=== PATIENT | male | born 1955 | race Caucasian/White ===

== ENCOUNTER 2019-11-19 16:43 | Inpatient (IN) | payer BC, MEDICAID ==
[~2019-11-19] VITALS: Ht 182.9 cm; Wt 90.7 kg
[~2019-11-19 16:43] MED LIST: ALBU8HFA4 INH; AMIN30LI2 PO; CRAN300T PO; DOCU-141 PO; FLUT9.9S NS; FOLI1TAB16 PO; HYDR-4077 PO; LACT10SO7 PO; LEVO200T PO; LORA-259 PO; METO50TA16 PO; MIRT15TA PO; OMEP40CA13 PO; OXYC15TA2 PO; SIME80TA15 PO; SPIR25TA PO; TAMS-3 PO; THIA100T13 PO; VIT1TABL46 PO; WHEA1POW6 PO
[2019-11-19] MEDS ORDERED: ONDANSETRON 4 MG/2 ML VIAL IV ONE (17:00)
[2019-11-19] MEDS ORDERED: IV NORMAL SALINE 500 ML BAG IV ONE (17:00)
[2019-11-19] MEDS ORDERED: HYDROMORPHONE 1 MG/1 ML DISP.SYRIN IV ONE ×2 (17:00→18:45)
[2019-11-19] MEDS ORDERED: ONDANSETRON 4 MG/2 ML VIAL ONE (17:07)
[2019-11-19] MEDS ORDERED: HYDROMORPHONE 1 MG/1 ML DISP.SYRIN ONE ×2 (17:07→18:48)
[2019-11-19] MEDS ORDERED: SPIR100T5 PO (17:15)
[2019-11-19] MEDS ORDERED: ALBU8HFA4 IH (17:15)
[2019-11-19] MEDS ORDERED: OXYC5TAB3 PO (17:15)
[2019-11-19] MEDS ORDERED: TOPROL XL (17:15)
[2019-11-19] MEDS ORDERED: NIFEDIPINE (17:15)
[2019-11-19] MEDS ORDERED: FURO20TA90 (17:15)
[2019-11-19] MEDS ORDERED: LORA-258 PO (17:15)
[2019-11-19] MEDS ORDERED: LIBRIUM (17:15)
[2019-11-19] MEDS ORDERED: METO-357 PO (17:15)
[2019-11-19] MEDS ORDERED: FOLIC ACID (17:15)
[2019-11-19] MEDS ORDERED: DILAUDID (17:15)
[2019-11-19] MEDS ORDERED: LEVO200T9 PO (17:15)
--- NOTE | 2019-11-19 17:15 | NUR ---
PT IS IN ROOM #1B. DR MORENO EVALUATED THE PT.
[2019-11-19 17:46] LABS: BASOPHILS # (AUTO) 0.2 K/uL (0.0-8.0); BASOPHILS % (AUTO) 1.6 % (0.0-2.0); CREATININE 1.5 mg/dL (0.6-1.3); EOSINOPHILS # (AUTO) 0.1 K/uL (0.0-0.7); EOSINOPHILS % (AUTO) 0.8 % (0.0-7.0); HEMATOCRIT 28.9 % (36.7-47.1); HEMOGLOBIN 8.8 g/dL (12.5-16.3); LYMPHOCYTES % (AUTO) 18.7 % (20.5-51.5); MEAN CORPUSCULAR HEMOGLOBIN 19.4 uug (23.8-33.4); MEAN CORPUSCULAR HGB CONC 30 g/dL (32.5-36.3); MEAN CORPUSCULAR VOLUME 63.7 fL (73.0-96.2); MONOCYTES # (AUTO) 1.3 K/uL (2.0-10.0); NEUTROPHILS # (AUTO) 7.1 K/uL (1.8-8.9); NEUTROPHILS % (AUTO) 66.9 % (38.5-71.5); PLATELET COUNT (AUTO) 78 K/uL (152-348); POTASSIUM 3.9 mmol/L (3.5-5.1); RED BLOOD CELL COUNT(AUTO) 4.54 MIL/uL (4.06-5.63); WHITE BLOOD COUNT (AUTO) 10.6 K/uL (3.6-10.2)
[2019-11-19 17:51] LABS: BILIRUBIN,DIRECT 0.3 mg/dL (0.0-0.2); BILIRUBIN,TOTAL 0.6 mg/dL (0.2-1.0)
--- NOTE | 2019-11-19 19:00 | NUR ---
urine collected at this time and sent to lab, no signs of distress noted at this time, vitals WNL
--- NOTE | 2019-11-19 19:00 | NUR ---
REPORT GIVEN TO NEWSPAPER PHOTOGRAPHER ASHUTOSH ELIZABETH.
[2019-11-19] MEDS ORDERED: Z GUARD REMEDY PASTE 57 GM TUBE TOP PRN (19:15)
[2019-11-19] MEDS ORDERED: MAGNESIUM HYDROXIDE 30 ML LIQUID UDC PO PRN (19:15)
[2019-11-19] MEDS ORDERED: ACETAMINOPHEN 325 MG TABLET PO PRN (19:15)
[2019-11-19] MEDS: LORAZEPAM 2 MG/1 ML VIAL IV PRN ×2 (19:58→23:02)
[2019-11-19 20:15] LABS: BAND % (MANUAL) 1 % (0-10); EOSINOPHILS % (MANUAL) 3 % (0-8); LYMPHOCYTES % (MANUAL) 16 % (20-40); MONOCYTES % (MANUAL) 10 % (2-10); NEUTROPHILS % (MANUAL) 70 % (42-75)
--- NOTE | 2019-11-19 20:29 | NUR ---
Pt. admitted to Tele unit , under care of Dr. Terry Belongs List completed, no signs of distress noted
[2019-11-19 20:44] VITALS: BP 154/68
[2019-11-19] MEDS ORDERED: ALBUTEROL SULFATE 2.5 MG/3 ML NEBU NEB PRN (21:00)
[2019-11-19] MEDS: THIAMINE HCL 100 MG TABLET PO SCH (21:06)
[2019-11-19] MEDS: FOLIC ACID 1 MG TABLET PO SCH (21:07)
[2019-11-19] MEDS: IV D5 1/2 NS 1000 ML 1,000 ML IV PRN (21:07)
[2019-11-19] MEDS: OXYCODONE HCL 5 MG TABLET PO PRN (22:59)
[2019-11-20 01:01] VITALS: BP 122/62
[2019-11-20] MEDS: ONDANSETRON 4 MG/2 ML VIAL IV PRN ×2 (03:40→11:28)
[2019-11-20] MEDS: LORAZEPAM 2 MG/1 ML VIAL IV PRN (03:40)
[2019-11-20] MEDS: IV D5 1/2 NS 1000 ML 1,000 ML IV PRN ×2 (04:00→15:15)
[2019-11-20 05:31] VITALS: BP 121/65
--- NOTE | 2019-11-20 06:36 | NUR ---
Admitted to room 302; safety maintained; CIWA done and gave ativan IVP; incontinence care done; needs attended; c/o pain x1 Oxyir given; remains on 1 liter O2 nasal cannula; continue to monitor; continue plan of care.
[2019-11-20] MEDS: LEVOTHYROXINE SODIUM 200 MCG TABLET PO SCH (06:46)
[2019-11-20] MEDS ORDERED: PANTOPRAZOLE SODIUM 40 MG TABLET.DR PO SCH (07:00)
[2019-11-20 07:30] LABS: BASOPHILS % (AUTO) 0.8 % (0.0-2.0); EOSINOPHILS # (AUTO) 0.1 K/uL (0.0-0.7); EOSINOPHILS % (AUTO) 1.3 % (0.0-7.0); HEMOGLOBIN 7.6 g/dL (12.5-16.3); MEAN CORPUSCULAR HEMOGLOBIN 20.1 uug (23.8-33.4)
--- NOTE | 2019-11-20 07:30 | NUR ---
pt received in bed sleeping .o2 on and vs are stable pt is axox3 call light with in reach
[2019-11-20 07:32] LABS: HEMATOCRIT 24.6 % (36.7-47.1); MEAN CORPUSCULAR HGB CONC 31 g/dL (32.5-36.3); MEAN CORPUSCULAR VOLUME 64.7 fL (73.0-96.2); MONOCYTES # (AUTO) 0.5 K/uL (2.0-10.0); MONOCYTES % (AUTO) 8.7 % (0.0-11.0); NEUTROPHILS # (AUTO) 3.8 K/uL (1.8-8.9); NEUTROPHILS % (AUTO) 71.2 % (38.5-71.5); WHITE BLOOD COUNT (AUTO) 5.4 K/uL (3.6-10.2)
[2019-11-20 07:36] LABS: BILIRUBIN,TOTAL 0.5 mg/dL (0.2-1.0); CREATININE 1.4 mg/dL (0.6-1.3); MAGNESIUM 1.2 mg/dL (1.8-2.4); PHOSPHOROUS 3.8 mg/dL (2.5-4.9); TOTAL PROTEIN, SERUM 6.3 g/dL (6.4-8.2)
[2019-11-20 07:43] LABS: THYROID STIMULATING HORMONE 10.968 mIU/mL (0.358-3.740)
[2019-11-20 07:56] LABS: PLATELET COUNT (AUTO) 45 K/uL (152-348)
[2019-11-20] MEDS: FOLIC ACID 1 MG TABLET PO SCH (08:04)
[2019-11-20] MEDS: THIAMINE HCL 100 MG TABLET PO SCH (08:04)
[2019-11-20] MEDS ORDERED: METOPROLOL SUCCINATE XL 50 MG TAB.SR.24H PO SCH (09:00)
[2019-11-20] MEDS ORDERED: SPIRONOLACTONE 50 MG TABLET PO SCH (09:00)
[2019-11-20] MEDS ORDERED: SPIRONOLACTONE 100 MG TABLET PO SCH (09:00)
[2019-11-20 10:42] LABS: BAND % (MANUAL) 1 % (0-10); EOSINOPHILS % (MANUAL) 1 % (0-8); LYMPHOCYTES % (MANUAL) 10 % (20-40); MONOCYTES % (MANUAL) 11 % (2-10); MYELOCYTES % 1 % (0-0); NEUTROPHILS % (MANUAL) 76 % (42-75)
[2019-11-20] MEDS: MAGNESIUM SULFATE/D5W 100 ML IV SCH ×4 (10:46→13:29)
[2019-11-20 12:00] VITALS: BP 105/60
[2019-11-20] MEDS ORDERED: CEFTRIAXONE 1 G VIAL IV SCH (13:15)
[2019-11-20] MEDS ORDERED: OCTREOTIDE ACETATE DRIP 1,250 MCG in IV NORMAL SALINE 247.5 ML IV PRN (13:30)
[2019-11-20] MEDS ORDERED: OCTREOTIDE ACETATE DRIP 500 MCG in IV NORMAL SALINE 99 ML IV PRN (13:30)
[2019-11-20] MEDS ORDERED: MAGNESIUM SULFATE/D5W 100 ML IV SCH (13:30)
[2019-11-20] MEDS: CEFTRIAXONE 1 G in IV DEXTROSE 5% 50 ML IV SCH (15:00)
--- NOTE | 2019-11-20 15:00 | NUR ---
took over care from am nurse, pt awake alert and oriented, looks pale, no active bleeding noted, explained plan of care- verbalized understanding, safety measures maintained, call light within reach
--- NOTE | 2019-11-20 15:00 | NUR ---
transfer the pt to [facility]
--- NOTE | 2019-11-20 15:05 | NUR ---
sandostatin drip started at 50mcg at 10ml/hr started, VS wnl, no bleeding noted, will continue to monitor closely, changed status to BRENDEN, tleSR 70's, denies of pain
[2019-11-20 15:28] LABS: *BILIRUBIN,URIN NEGATIVE (NEGATIVE); *BLOOD, URINE 1+ (NEGATIVE); *CLARITY,URINE CLEAR (CLEAR); *COLOR,URINE YELLOW (YELLOW); *KETONES,URINE NEGATIVE (NEGATIVE); *UROBILINOGEN,URINE 0.2 E.U./dl (NORMAL); LEUKOCYTE ESTERASE ,URINE NEGATIVE (NEGATIVE); NITRITE, URINE NEGATIVE (NEGATIVE); PH,URINE 5.5 (5.0-8.0); UGLUCOSE NEGATIVE (NEGATIVE)
[2019-11-20 15:31] VITALS: BP 135/57
[2019-11-20 15:53] LABS: *CREATININE,URINE 43.6 mg/dL (30-125); *URINE TOTAL PROTEIN RANDOM 76.5 mg/dL (<150/24HR)
[2019-11-20] MEDS: PANTOPRAZOLE SODIUM 40 MG VIAL IV SCH (16:08)
[2019-11-20 16:11] LABS: HEMATOCRIT 25.6 % (36.7-47.1); HEMOGLOBIN 7.6 g/dL (12.5-16.3)
[2019-11-20 17:36] VITALS: BP 105/47
--- NOTE | 2019-11-20 18:44 | NUR ---
resting in bed, no bleeding noted, vs wnl, all needs attended and met, call light within reach
[2019-11-20] MEDS ORDERED: GOLYTELY 4000 ML BOTTLE PO ONE (20:00)
[2019-11-20 20:12] VITALS: BP 108/53
[2019-11-20 20:15] LABS: HEMATOCRIT 24.3 % (36.7-47.1)
[2019-11-20 20:19] LABS: HEMOGLOBIN 7.4 g/dL (12.5-16.3)
[2019-11-20] MEDS: OXYCODONE HCL 5 MG TABLET PO PRN (20:35)
[2019-11-21 00:05] VITALS: BP 130/57
[2019-11-21] MEDS: LORAZEPAM 2 MG/1 ML VIAL IV PRN ×3 (00:23→21:23)
[2019-11-21] MEDS: ONDANSETRON 4 MG/2 ML VIAL IV PRN (00:23)
[2019-11-21] MEDS: IV D5 1/2 NS 1000 ML 1,000 ML IV PRN ×3 (00:25→23:48)
[2019-11-21 00:37] LABS: HEMOGLOBIN 7.6 g/dL (12.5-16.3)
[2019-11-21 00:39] LABS: HEMATOCRIT 24.7 % (36.7-47.1)
[2019-11-21 04:50] VITALS: BP 117/58
[2019-11-21] MEDS: LEVOTHYROXINE SODIUM 200 MCG TABLET PO SCH (05:22)
[2019-11-21] MEDS: OXYCODONE HCL 5 MG TABLET PO PRN (05:22)
[2019-11-21] MEDS ORDERED: SORBITOL 70% SOLUTION 30 ML UDC PO ONE (06:00)
[2019-11-21] MEDS: HYDROMORPHONE 1 MG/1 ML DISP.SYRIN IV PRN ×4 (06:20→19:54)
--- NOTE | 2019-11-21 06:35 | NUR ---
Pt rested well in between care; pt took half of the golytely; last BM is watery but still brownish; pt had his sorbitol; pt c/o pain, oxyIR not working on him; referred to Dr Arizmendi and ordered Dilaudid o.5 mg IV q4h; also pt is now Tele Status;
--- NOTE | 2019-11-21 08:00 | NUR ---
Received patient in bed awake alert and oriented. No signs of respiratory distress noted, patient is saturating well on 1L of oxygen. IV intact and patent on the right AC 20 gauge and another on the right wrist. Patient is currently NPO except for medications. Patient is drinking Golytely in preparation for his EGD scheduled at 1300. Informed consent signed and in the patient's chart. Will do preop checklist prior to pickup. Safety precautions in place with bed in the lowest position and locked and call light ans belongings within reach. Will continue to observe and monitor.
[2019-11-21 08:16] LABS: BACTERIA,URINE 1+ /HPF (NONE SEEN); WBC,URINE NONE SEEN /HPF (0-3)
[2019-11-21] MEDS: THIAMINE HCL 100 MG TABLET PO SCH (08:27)
[2019-11-21] MEDS: PANTOPRAZOLE SODIUM 40 MG VIAL IV SCH (08:27)
[2019-11-21] MEDS: FOLIC ACID 1 MG TABLET PO SCH (08:27)
[2019-11-21 09:50] LABS: BASOPHILS # (AUTO) 0.1 K/uL (0.0-8.0); EOSINOPHILS # (AUTO) 0.1 K/uL (0.0-0.7); HEMOGLOBIN 7.9 g/dL (12.5-16.3); MONOCYTES # (AUTO) 0.7 K/uL (2.0-10.0)
[2019-11-21 09:53] LABS: BASOPHILS % (AUTO) 1.8 % (0.0-2.0); EOSINOPHILS % (AUTO) 1.5 % (0.0-7.0); HEMATOCRIT 26.5 % (36.7-47.1); LYMPHOCYTES # (AUTO) 0.9 K/uL (20.0-40.0); LYMPHOCYTES % (AUTO) 16.6 % (20.5-51.5); MEAN CORPUSCULAR HEMOGLOBIN 19.8 uug (23.8-33.4); MEAN CORPUSCULAR HGB CONC 30 g/dL (32.5-36.3); MEAN CORPUSCULAR VOLUME 66.2 fL (73.0-96.2); MONOCYTES % (AUTO) 12.8 % (0.0-11.0); NEUTROPHILS # (AUTO) 3.6 K/uL (1.8-8.9); NEUTROPHILS % (AUTO) 67.3 % (38.5-71.5); RED BLOOD CELL COUNT(AUTO) 4.01 MIL/uL (4.06-5.63); WHITE BLOOD COUNT (AUTO) 5.3 K/uL (3.6-10.2)
[2019-11-21 10:00] LABS: BILIRUBIN,TOTAL 0.7 mg/dL (0.2-1.0); CREATININE 1.4 mg/dL (0.6-1.3); MAGNESIUM 1.6 mg/dL (1.8-2.4); PHOSPHOROUS 2.8 mg/dL (2.5-4.9); POTASSIUM 4.1 mmol/L (3.5-5.1); TOTAL PROTEIN, SERUM 6.5 g/dL (6.4-8.2)
[2019-11-21 10:08] LABS: PLATELET COUNT (AUTO) 33 K/uL (152-348)
--- NOTE | 2019-11-21 10:20 | NUR ---
Received critical labs from lab. Hgb is 7.9 and platelet count is 33. Dr. Pavon made aware. Will await any further orders. Will continue to monitor.
[2019-11-21 11:50] LABS: BAND % (MANUAL) 2 % (0-10); LYMPHOCYTES % (MANUAL) 10 % (20-40); MONOCYTES % (MANUAL) 1 % (2-10); NEUTROPHILS % (MANUAL) 87 % (42-75)
[2019-11-21 12:10] VITALS: BP 135/62
--- NOTE | 2019-11-21 13:01 | NUR ---
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 Patient left in stable condition. Antibiotic Rocephin was given to the RN to administer because it was scheduled for 1400 administration.
[2019-11-21] MEDS: SUCRALFATE 1 G TABLET PO SCH ×3 (13:15→23:00)
--- NOTE | 2019-11-21 13:15 | NUR ---
Dr Jackson aware of patient's hemoglobin and platelet and says that the patient has cirrhosis of the liver and is an alcoholic and the labs reflects the patient's disease process
[2019-11-21] MEDS: CEFTRIAXONE 1 G in IV DEXTROSE 5% 50 ML IV SCH (14:00)
[2019-11-21 15:43] VITALS: BP 149/77
[2019-11-21 16:13] LABS: HEMATOCRIT 28.2 % (36.7-47.1); HEMOGLOBIN 8.5 g/dL (12.5-16.3)
--- NOTE | 2019-11-21 18:44 | NUR ---
Patient resting comfortably in bed. Saturating well with no signs of respiratory distress. patient IV is patent and intact. Safety precautions in place, bed locked and in the lowest position with call light and and belongings within reach. Will endorse to the oncoming nurse.
--- NOTE | 2019-11-21 19:35 | NUR ---
Patient in bed,alert and able to make needs known,IV line patent and intact on right wrist 20 g with D5 1/ 2 Ns running @ 125 ml/hr, tolerated well, dressing intact on left foot, call light within reach.Safety measures continue.Will continue to monitor.
[2019-11-21 19:38] VITALS: BP 140/70
[2019-11-22] MEDS: HYDROMORPHONE 1 MG/1 ML DISP.SYRIN IV PRN ×3 (00:01→08:34)
[2019-11-22 00:27] VITALS: BP 147/71
[2019-11-22] MEDS: LORAZEPAM 2 MG/1 ML VIAL IV PRN ×2 (02:43→09:51)
[2019-11-22 05:10] VITALS: BP 149/87
[2019-11-22] MEDS: SUCRALFATE 1 G TABLET PO SCH ×2 (06:14→11:30)
[2019-11-22] MEDS: LEVOTHYROXINE SODIUM 200 MCG TABLET PO SCH (06:15)
--- NOTE | 2019-11-22 06:25 | NUR ---
Patient awake , alert in no distress noted, no bloody stools noted, c/o abdominal pain with 9/10 pain scale , PRN Dilaudid given at 1954H,0001H,0406 H as ordered, and ativan PRN at 2123 and 0243 ,tolerated well. Instructed to offload left leg, keep dressing intact and dry.Call light with in reach. Continue safety measures Will endorse to the oncoming nurse
[2019-11-22] MEDS: THIAMINE HCL 100 MG TABLET PO SCH (08:26)
[2019-11-22] MEDS: FOLIC ACID 1 MG TABLET PO SCH (08:26)
[2019-11-22] MEDS ORDERED: SODIUM HYPOCHLORITE 0.125% 473 ML BOTTLE TP SCH (09:00)
--- NOTE | 2019-11-22 09:30 | NUR ---
Patient alert, oriented x 4, not in any form of distress, on room air. He complained of pain on left foot 8/10, given PRN IV dilaudid as ordered with noted relief. Due medications PO administered and tolerated well. Assisted with his needs promptly. Followed up with Dr. Pavon if Sandostatin drip still to be continued and per MD he will check into it. Call light and frequently used items placed within patient's reach.
--- NOTE | 2019-11-22 10:10 | NUR ---
Patient refused dressing change, refused to take due medication at this time and refused duplex scan to be done. Patient also scheduled for MRI of left ankle but patient also refused. Patient also refused to wear tele-monitor and took it off himself. Explained risks and benefits but patient still refused medication and diagnostic tests to be done. Patient stated he wanted to go home against medical advise, and signed AMA form. Dr. Manuel Pavon made aware. Patient stated that he will just wait for his Nelia to pick him up at 1PM.
[2019-11-22 11:33] VITALS: BP 149/83
[2019-11-22] MEDS ORDERED: IRR STERIL WATER FOR IRR 1000 ML BOTTLE IR ONE (13:29)
[2019-11-22] MEDS ORDERED: PHENYLEPHRINE 10 MG/1 ML VIAL IV ONE (13:29)
[2019-11-22] MEDS ORDERED: LIDOCAINE-MPF 2% 5 ML VIAL IJ ONE (13:29)
[2019-11-22] MEDS ORDERED: PROPOFOL 200 MG/20 ML BOTTLE IV ONE (13:29)
[2019-11-22] MEDS ORDERED: EPHEDRINE SULFATE 50 MG/ML AMPUL IM ONE (13:29)
[2019-11-22] MEDS ORDERED: IV NORMAL SALINE 1000 ML BAG IV ONE (13:29)
--- NOTE | 2019-11-22 13:30 | NUR ---
Patient left AMA. Patient refused discharge instructions but accepted prescription. Assisted patient safely to the lobby.
[2019-11-22 15:06] LABS: A/G RATIO 0.8 (0.7-1.7); ALBUMIN 2.9 g/dL (2.9-4.4); ALPHA-1-GLOBULIN 0.3 g/dL (0.0-0.4); ALPHA-2-GLOBULIN 0.7 g/dL (0.4-1.0); BETA GLOBULIN 1.2 g/dL (0.7-1.3); GAMMA GLOBULIN 1.4 g/dL (0.4-1.8); GLOBULIN, TOTAL 3.6 g/dL (2.2-3.9); M-SPIKE Not Observed g/dL (Not Observed)
== END 2019-11-22 13:30 | disposition left against medical advice (07) | DRG 241 ==
LOC: ER 16:45 → TELE3 20:10 → TELE-TD3 11-20 14:56 → TELE3 11-21 06:50
PROC: 0DJD8ZZ Inspection of Lower Intestinal Tract, Via Natural or Artificial Opening Endoscopic (ICD-10-PCS; principal; 2019-11-21)
PROC: 0DB68ZX Excision of Stomach, Via Natural or Artificial Opening Endoscopic, Diagnostic (ICD-10-PCS; principal; 2019-11-21)
DX: K26.4 Chronic or unspecified duodenal ulcer with hemorrhage (principal); D62 Acute posthemorrhagic anemia; N18.3 Chronic kidney disease, stage 3 (moderate); K63.5 Polyp of colon; K22.70 Barrett's esophagus without dysplasia; K44.9 Diaphragmatic hernia without obstruction or gangrene; B35.1 Tinea unguium; D69.6 Thrombocytopenia, unspecified; E03.9 Hypothyroidism, unspecified; E44.0 Moderate protein-calorie malnutrition; E66.9 Obesity, unspecified; E83.42 Hypomagnesemia; F11.20 Opioid dependence, uncomplicated; F17.210 Nicotine dependence, cigarettes, uncomplicated; G40.909 Epilepsy, unspecified, not intractable, without status epilepticus; J44.9 Chronic obstructive pulmonary disease, unspecified; M17.0 Bilateral primary osteoarthritis of knee; N17.9 Acute kidney failure, unspecified; K21.0 Gastro-esophageal reflux disease with esophagitis; Y90.8 Blood alcohol level of 240 mg/100 ml or more; K76.6 Portal hypertension; F19.10 Other psychoactive substance abuse, uncomplicated; K70.30 Alcoholic cirrhosis of liver without ascites; K76.7 Hepatorenal syndrome; L97.329 Non-pressure chronic ulcer of left ankle with unspecified severity; G62.1 Alcoholic polyneuropathy; K31.89 Other diseases of stomach and duodenum; K25.9 Gastric ulcer, unspecified as acute or chronic, without hemorrhage or perforation; K29.80 Duodenitis without bleeding; F10.129 Alcohol abuse with intoxication, unspecified; K29.70 Gastritis, unspecified, without bleeding; Z68.27 Body mass index [BMI] 27.0-27.9, adult
CPT/HCPCS: 36415; 70030-TC; 71045; 73610; 83690; 83735; 83970; 84100; 84155; 84156; 84165; 84300; 84443; 85018; 85025; 85651; 85730; 86140; 86850; 86900; 86901; 87070; 88312-TC; 88313-TC; 93005; A4217; A4663; C9113; G0378; G0480; J0696; J1170; J2060; J2354; J2370; J2405; J3475; J3490; J7030; J7040; J7050; J7060

== ENCOUNTER 2019-11-25 03:57 | Inpatient (IN) | payer MEDICAID ==
[~2019-11-25] VITALS: Ht 172.7 cm; Wt 81.6 kg
[~2019-11-25 03:57] MED LIST changes: +ALBU8HFA4 IH; -ALBU8HFA4 INH; -AMIN30LI2 PO; -CRAN300T PO; +DILAUDID; -DOCU-141 PO; -FLUT9.9S NS; -FOLI1TAB16 PO; +FOLIC ACID; +FURO20TA90; -HYDR-4077 PO; -LACT10SO7 PO; -LEVO200T PO; +LEVO200T9 PO; +LIBRIUM; +LORA-258 PO; -LORA-259 PO; +METO-357 PO; -METO50TA16 PO; -MIRT15TA PO; +NIFEDIPINE; -OMEP40CA13 PO; -OXYC15TA2 PO; +OXYC5TAB3 PO; -SIME80TA15 PO; +SPIR100T5 PO; -SPIR25TA PO; -TAMS-3 PO; -THIA100T13 PO; +TOPROL XL; -VIT1TABL46 PO; -WHEA1POW6 PO
--- NOTE | 2019-11-25 04:10 | NUR ---
Dr. Bell at bedside for MSE.
[2019-11-25 04:57] LABS: BASOPHILS # (AUTO) 0.1 K/uL (0.0-8.0); BASOPHILS % (AUTO) 1.4 % (0.0-2.0); EOSINOPHILS # (AUTO) 0.2 K/uL (0.0-0.7); EOSINOPHILS % (AUTO) 1.7 % (0.0-7.0); HEMATOCRIT 28.6 % (36.7-47.1); HEMOGLOBIN 8.8 g/dL (12.5-16.3); LYMPHOCYTES # (AUTO) 1.4 K/uL (20.0-40.0); LYMPHOCYTES % (AUTO) 14.2 % (20.5-51.5); MEAN CORPUSCULAR HEMOGLOBIN 20.6 uug (23.8-33.4); MEAN CORPUSCULAR HGB CONC 31 g/dL (32.5-36.3); MEAN CORPUSCULAR VOLUME 67.1 fL (73.0-96.2); MONOCYTES # (AUTO) 1.3 K/uL (2.0-10.0); MONOCYTES % (AUTO) 13.4 % (0.0-11.0); NEUTROPHILS # (AUTO) 6.8 K/uL (1.8-8.9); NEUTROPHILS % (AUTO) 69.3 % (38.5-71.5); PLATELET COUNT (AUTO) 118 K/uL (152-348); RED BLOOD CELL COUNT(AUTO) 4.26 MIL/uL (4.06-5.63); WHITE BLOOD COUNT (AUTO) 9.8 K/uL (3.6-10.2)
[2019-11-25 05:06] LABS: BILIRUBIN,TOTAL 0.4 mg/dL (0.2-1.0); CREATININE 1.7 mg/dL (0.6-1.3); POTASSIUM 3.6 mmol/L (3.5-5.1); TOTAL PROTEIN, SERUM 6.9 g/dL (6.4-8.2)
[2019-11-25] MEDS ORDERED: VANCOMYCIN 1G/D5W 200 ML PIGGYBACK IV ONE (05:45)
--- NOTE | 2019-11-25 05:50 | NUR ---
Panel call for admission, Andi Rogel DNP accepting patient for MedSurg/Cellulitis of Foor. Pt was admitted here before, but receipt and report clerk is double checking insurance at this time.
[2019-11-25] MEDS ORDERED: Z GUARD REMEDY PASTE 57 GM TUBE TOP PRN (06:00)
[2019-11-25] MEDS ORDERED: ONDANSETRON 4 MG/2 ML VIAL IV PRN (06:00)
[2019-11-25] MEDS ORDERED: TEMAZEPAM 15 MG CAPSULE PO PRN (06:00)
[2019-11-25] MEDS ORDERED: ACETAMINOPHEN 325 MG TABLET PO PRN (06:00)
--- NOTE | 2019-11-25 06:10 | NUR ---
Patient is able to be admitted, called bed, S/W Nattie and got Room 303. Pending Covid 19 fast antigen.
--- NOTE | 2019-11-25 06:15 | NUR ---
All belongings accounted for, and patient signed. However, patient refused to open his bag and itemize the list. Security contacted to wand for contrabands, none found. COVID/MRSA swab done, sent to lab. 3rd floor will take report when Covid result is in.
[2019-11-25] MEDS ORDERED: PANTOPRAZOLE SODIUM 40 MG TABLET.DR PO SCH (07:00)
--- NOTE | 2019-11-25 07:00 | NUR ---
Report given to incoming RN.
[2019-11-25] MEDS ORDERED: VANCOMYCIN IV 200 ML ONE (08:23)
--- NOTE | 2019-11-25 09:00 | NUR ---
Pt. admitted to Med Surg , under care of Andi Rogel DNP Belongs List completed, MRSA swab done
[2019-11-25 09:48] VITALS: BP 139/71
--- NOTE | 2019-11-25 10:07 | NUR ---
64 year old male received from er via gurney to room 306 .pt is axox4 call light with in reach.vs are stable . called for admission orders
[2019-11-25] MEDS: IV NS 1000 ML 1,000 ML IV PRN (10:11)
[2019-11-25] MEDS: ALBUMIN HUMAN 25% 25 GM in PREMIXED 1 EACH IV SCH ×2 (11:52→17:28)
[2019-11-25 12:35] VITALS: BP 133/70
[2019-11-25 13:43] LABS: *BILIRUBIN,URIN NEGATIVE (NEGATIVE); *BLOOD, URINE NEGATIVE (NEGATIVE); *CLARITY,URINE CLEAR (CLEAR); *COLOR,URINE YELLOW (YELLOW); *KETONES,URINE NEGATIVE (NEGATIVE); *UROBILINOGEN,URINE 0.2 E.U./dl (NORMAL); LEUKOCYTE ESTERASE ,URINE NEGATIVE (NEGATIVE); NITRITE, URINE NEGATIVE (NEGATIVE); PH,URINE 5.5 (5.0-8.0); UGLUCOSE NEGATIVE (NEGATIVE)
[2019-11-25 13:57] LABS: *CREATININE,URINE 60.4 mg/dL (30-125); *URINE TOTAL PROTEIN RANDOM 81.1 mg/dL (<150/24HR)
[2019-11-25] MEDS: HYDROCODONE/APAP 5-325MG TABLET PO PRN (15:09)
[2019-11-25 16:17] LABS: BACTERIA,URINE NONE SEEN /HPF (NONE SEEN); RBC,URINE 0-3 /HPF (0-3); WBC,URINE 0-3 /HPF (0-3)
[2019-11-25 16:18] LABS: MUCUS,URINE FEW /LPF (0-FEW)
[2019-11-25 16:27] VITALS: BP 113/74
--- NOTE | 2019-11-25 20:00 | NUR ---
RECEIVED PATIENT ASLEEP IN BED. EASILY AROUSABLE. A/O 4. DENIES PAIN. NO RESP. DISTRESS NOTED. IVF INFUSING WELL TO RIGHT AC #20 GAUGE. CALL LIGHT IN REACH. ALL NEEDS ATTENDED. WILL CONTINUE TO MONITOR AND ASSESS.
[2019-11-25 20:09] VITALS: BP 117/72
[2019-11-25] MEDS ORDERED: LORAZEPAM 2 MG/1 ML VIAL IV PRN (21:45)
[2019-11-26] MEDS: ALBUMIN HUMAN 25% 25 GM in PREMIXED 1 EACH IV SCH ×2 (00:17→05:57)
[2019-11-26] MEDS: LORAZEPAM 2 MG/1 ML VIAL IV PRN ×5 (00:25→20:05)
[2019-11-26] MEDS: HYDROCODONE/APAP 5-325MG TABLET PO PRN ×2 (01:03→06:12)
[2019-11-26] MEDS: IV NS 1000 ML 1,000 ML IV PRN (01:22)
[2019-11-26] MEDS ORDERED: VANCOMYCIN IV 1,250 MG in IV DEXTROSE 5% 250 ML IV SCH ×2 (05:00→23:00)
--- NOTE | 2019-11-26 05:15 | NUR ---
PATIENT ASLEEP BUT EASILY AROUSABLE, CONT ON PAIN MANAGEMENT DUE LEFT FOOT CELLULITIS. PATIENT CONT ON IV ABX WITH ADVERSE REACTION NOTED, CONT ON IV ALBUMIN SUPPLEMENT, TOLERATE WELL. PATIENT HAS NO SEIZURES NOTED DUE ALCOHOL WITHDRAWALS. PATIENT CONTINENT USES URINAL, CALL LIGHT WITHIN REACH.
[2019-11-26 05:31] VITALS: BP 156/64
[2019-11-26 06:51] LABS: CREATININE 1.3 mg/dL (0.6-1.3); PHOSPHOROUS 2.5 mg/dL (2.5-4.9); POTASSIUM 3.7 mmol/L (3.5-5.1)
[2019-11-26 06:53] LABS: MAGNESIUM 1.2 mg/dL (1.8-2.4)
[2019-11-26 07:24] LABS: BASOPHILS # (AUTO) 0.1 K/uL (0.0-8.0); BASOPHILS % (AUTO) 1.5 % (0.0-2.0); EOSINOPHILS # (AUTO) 0.1 K/uL (0.0-0.7); EOSINOPHILS % (AUTO) 1.6 % (0.0-7.0); HEMATOCRIT 24.5 % (36.7-47.1); HEMOGLOBIN 7.6 g/dL (12.5-16.3); LYMPHOCYTES # (AUTO) 0.8 K/uL (20.0-40.0); LYMPHOCYTES % (AUTO) 17.3 % (20.5-51.5); MEAN CORPUSCULAR HEMOGLOBIN 20.8 uug (23.8-33.4); MEAN CORPUSCULAR HGB CONC 31 g/dL (32.5-36.3); MEAN CORPUSCULAR VOLUME 66.7 fL (73.0-96.2); MONOCYTES # (AUTO) 0.9 K/uL (2.0-10.0); MONOCYTES % (AUTO) 18.9 % (0.0-11.0); NEUTROPHILS # (AUTO) 2.8 K/uL (1.8-8.9); NEUTROPHILS % (AUTO) 60.7 % (38.5-71.5); PLATELET COUNT (AUTO) 86 K/uL (152-348); RED BLOOD CELL COUNT(AUTO) 3.68 MIL/uL (4.06-5.63); WHITE BLOOD COUNT (AUTO) 4.6 K/uL (3.6-10.2)
--- NOTE | 2019-11-26 07:50 | NUR ---
TEXTED DR. GARCIA FOR MRI APPROVAL
[2019-11-26] MEDS: PANTOPRAZOLE SODIUM 40 MG TABLET.DR PO SCH ×2 (08:02→16:58)
[2019-11-26] MEDS: HYDROMORPHONE 1 MG/1 ML DISP.SYRIN IV PRN ×4 (10:37→23:18)
[2019-11-26] MEDS ORDERED: OXYCODONE HCL 5 MG TABLET PO PRN (10:45)
[2019-11-26] MEDS ORDERED: ALBUTEROL SULFATE 2.5 MG/3 ML NEBU NEB PRN (11:00)
[2019-11-26 11:12] VITALS: BP 160/87
--- NOTE | 2019-11-26 13:08 | NUR ---
Pt back from MRI
[2019-11-26] MEDS: MAGNESIUM SULFATE/D5W 100 ML IV SCH ×4 (14:02→16:58)
[2019-11-26 16:56] VITALS: BP 161/83
[2019-11-26 17:44] LABS: EOSINOPHILS % (MANUAL) 3 % (0-8); LYMPHOCYTES % (MANUAL) 12 % (20-40); MONOCYTES % (MANUAL) 13 % (2-10); NEUTROPHILS % (MANUAL) 72 % (42-75)
--- NOTE | 2019-11-26 18:17 | NUR ---
In bed asleep but arousable to name, AOx4, on RA with no SOB or distress noted at this time. IV on right FA 2g in place running NS@75 cc. Complained of anxiety due to alcohol withdrawal and pain on left leg throughout shift. Ativan and Dilaudid PRN given as ordered, effective for pt. Full thickness loss on left ankle cleaned and changed dressing. Able to ambulate to bathroom with minimal assist. MRI of LE joint done today. Bed locked in lowest position with call light within reach.
[2019-11-26 18:29] LABS: HEMOGLOBIN 7.9 g/dL (12.5-16.3)
--- NOTE | 2019-11-26 19:50 | NUR ---
patient awake on bed, awake b/p noted 171/86 . he is getting prn ativan for his anxiety and is requesting for ativan to be administered. IV RFA intact and is infusing NS as administered . Will recheck the b/p .
[2019-11-26 20:15] VITALS: BP 171/86
--- NOTE | 2019-11-26 20:30 | NUR ---
PRN ativan administered as ordered
[2019-11-26 20:36] VITALS: BP 161/79
--- NOTE | 2019-11-26 20:40 | NUR ---
b/p rechecked with /79 notified of the b/p.
[2019-11-26] MEDS: CLONIDINE HCL 0.1 MG TABLET PO PRN (21:44)
[2019-11-27 00:14] VITALS: BP 147/74
[2019-11-27] MEDS: LORAZEPAM 2 MG/1 ML VIAL IV PRN ×4 (01:04→20:45)
[2019-11-27] MEDS: IV NS 1000 ML 1,000 ML IV PRN (02:38)
[2019-11-27] MEDS: HYDROMORPHONE 1 MG/1 ML DISP.SYRIN IV PRN ×5 (03:55→23:20)
[2019-11-27 04:42] VITALS: BP 146/73
--- NOTE | 2019-11-27 06:33 | NUR ---
Patient awake on and off at night. Continuing on prn anxiety medication and pain medication q 4hrs. IV fluid infusing as ordered, continuing on atb for cellulitis. Fistula on left arm intact with +bruit and thrills. Will continue to monitor
[2019-11-27] MEDS: PANTOPRAZOLE SODIUM 40 MG TABLET.DR PO SCH ×2 (08:27→16:06)
[2019-11-27] MEDS: METOPROLOL SUCCINATE XL 50 MG TAB.SR.24H PO SCH (08:27)
[2019-11-27] MEDS: LEVOTHYROXINE SODIUM 200 MCG TABLET PO SCH (08:28)
[2019-11-27 09:00] LABS: BASOPHILS # (AUTO) 0.1 K/uL (0.0-8.0); EOSINOPHILS # (AUTO) 0.1 K/uL (0.0-0.7); EOSINOPHILS % (AUTO) 2.3 % (0.0-7.0); HEMATOCRIT 27.2 % (36.7-47.1); HEMOGLOBIN 8.4 g/dL (12.5-16.3); LYMPHOCYTES # (AUTO) 0.7 K/uL (20.0-40.0); LYMPHOCYTES % (AUTO) 11.7 % (20.5-51.5); MEAN CORPUSCULAR HEMOGLOBIN 20.9 uug (23.8-33.4); MEAN CORPUSCULAR HGB CONC 31 g/dL (32.5-36.3); MEAN CORPUSCULAR VOLUME 67.6 fL (73.0-96.2); MONOCYTES # (AUTO) 1.6 K/uL (2.0-10.0); MONOCYTES % (AUTO) 25.5 % (0.0-11.0); NEUTROPHILS # (AUTO) 3.7 K/uL (1.8-8.9); NEUTROPHILS % (AUTO) 59.5 % (38.5-71.5); PLATELET COUNT (AUTO) 116 K/uL (152-348); RED BLOOD CELL COUNT(AUTO) 4.02 MIL/uL (4.06-5.63); WHITE BLOOD COUNT (AUTO) 6.2 K/uL (3.6-10.2)
[2019-11-27 09:06] LABS: CREATININE 1.5 mg/dL (0.6-1.3); POTASSIUM 4.2 mmol/L (3.5-5.1)
[2019-11-27 10:55] LABS: BAND % (MANUAL) 3 % (0-10); LYMPHOCYTES % (MANUAL) 18 % (20-40); METAMYELOCYTES % 4 % (0-1); MONOCYTES % (MANUAL) 4 % (2-10); NEUTROPHILS % (MANUAL) 57 % (42-75)
[2019-11-27] MEDS: CLONIDINE HCL 0.1 MG TABLET PO PRN ×2 (12:50→22:15)
[2019-11-27 12:58] VITALS: BP 163/72
[2019-11-27] MEDS ORDERED: SOD FERRIC GLUC COMPLX/SUCROSE 125 MG in IV NORMAL SALINE 100 ML IV SCH (14:00)
[2019-11-27] MEDS: HYDROCODONE/APAP 5-325MG TABLET PO PRN (16:06)
[2019-11-27 16:16] VITALS: BP 163/75
--- NOTE | 2019-11-27 19:30 | NUR ---
RECEIVED PT IN NO ACUTE DISTRESS. IV INTACT. PT REQUESTING FOR HIS PAIN MEDICATION TOLD HIM ITS NOT YET DUE. SAFETY AND COMFORT PROVIDED. WILL CONTINUE TO MONITOR.
[2019-11-27] MEDS: VANCOMYCIN IV 1,000 MG in IV DEXTROSE 5% 250 ML IV SCH (19:47)
[2019-11-27 20:06] VITALS: BP 166/74
[2019-11-27] MEDS ORDERED: CEFTRIAXONE /D5W 50ML IVPB **ER PYXIS IV ONE (21:17)
[2019-11-27] MEDS: CEFTRIAXONE 1 G in IV DEXTROSE 5% 50 ML IV SCH (21:24)
[2019-11-27] MEDS: SOD FERRIC GLUC COMPLX/SUCROSE 125 MG in IV NORMAL SALINE 100 ML IV SCH (21:52)
[2019-11-27 23:00] VITALS: BP 143/68
[2019-11-28] MEDS: LORAZEPAM 2 MG/1 ML VIAL IV PRN ×5 (01:14→23:48)
[2019-11-28] MEDS: HYDROMORPHONE 1 MG/1 ML DISP.SYRIN IV PRN ×5 (03:23→22:00)
[2019-11-28 06:13] VITALS: BP 145/68
--- NOTE | 2019-11-28 06:45 | NUR ---
RECEIVED PT IN NO ACUTE DISTRESS. PRESCRIBED MEDICATION GIVEN AND PT TOLERATED IT WELL. ATIVAN GIVEN AT 2045H AND 0114H. PT TOLERATED IT WELL. DILAUDID GIVEN AT 2320H AND 0320H FOR PAIN. PT TOLERATED IT WELL. PT DEMANDING FOR HIS PAIN MEDICATIONS. PT TOLERATED IT WELL. ENDORSE TO INCOMING NURSE FOR CONTINUITY OF CARE.
[2019-11-28 07:34] LABS: CREATININE 1.5 mg/dL (0.6-1.3); POTASSIUM 4.8 mmol/L (3.5-5.1)
[2019-11-28] MEDS: PANTOPRAZOLE SODIUM 40 MG TABLET.DR PO SCH ×2 (08:14→16:55)
[2019-11-28] MEDS: METOPROLOL SUCCINATE XL 50 MG TAB.SR.24H PO SCH (08:18)
[2019-11-28] MEDS: LEVOTHYROXINE SODIUM 200 MCG TABLET PO SCH (08:26)
[2019-11-28 11:40] VITALS: BP 153/66
[2019-11-28] MEDS: VANCOMYCIN IV 1,000 MG in IV DEXTROSE 5% 250 ML IV SCH (12:12)
[2019-11-28] MEDS: SOD FERRIC GLUC COMPLX/SUCROSE 125 MG in IV NORMAL SALINE 100 ML IV SCH (14:19)
[2019-11-28 15:21] LABS: BASOPHILS # (AUTO) 0.1 K/uL (0.0-8.0); BASOPHILS % (AUTO) 1.4 % (0.0-2.0); EOSINOPHILS # (AUTO) 0.1 K/uL (0.0-0.7); EOSINOPHILS % (AUTO) 1.9 % (0.0-7.0); HEMOGLOBIN 7.5 g/dL (12.5-16.3); LYMPHOCYTES # (AUTO) 0.7 K/uL (20.0-40.0); LYMPHOCYTES % (AUTO) 11.6 % (20.5-51.5); MEAN CORPUSCULAR HEMOGLOBIN 20.3 uug (23.8-33.4); MEAN CORPUSCULAR HGB CONC 30 g/dL (32.5-36.3); MEAN CORPUSCULAR VOLUME 67.9 fL (73.0-96.2); MONOCYTES % (AUTO) 31.2 % (0.0-11.0); NEUTROPHILS # (AUTO) 3.4 K/uL (1.8-8.9); NEUTROPHILS % (AUTO) 53.9 % (38.5-71.5); PLATELET COUNT (AUTO) 124 K/uL (152-348); RED BLOOD CELL COUNT(AUTO) 3.69 MIL/uL (4.06-5.63); WHITE BLOOD COUNT (AUTO) 6.3 K/uL (3.6-10.2)
[2019-11-28 16:00] VITALS: BP 157/73
[2019-11-28] MEDS: CLONIDINE HCL 0.1 MG TABLET PO PRN (16:50)
--- NOTE | 2019-11-28 19:30 | NUR ---
RECEIVED PT IN NO ACUTE RESPIRATORY DISTRESS. PT ASKING FOR HIS ATIVAN. IV INTACT. SAFETY AND COMFORT PROVIDED. WILL CONTINUE TO MONITOR.
[2019-11-28] MEDS: CEFTRIAXONE 1 G in IV DEXTROSE 5% 50 ML IV SCH (19:37)
[2019-11-28 20:20] VITALS: BP_SYST 144; BP_SYST 153; BP_DIAS 62
[2019-11-29] VITALS (9 sets, daily range): BP systolic 127–175; BP diastolic 43–91
[2019-11-29] MEDS: HYDROMORPHONE 1 MG/1 ML DISP.SYRIN IV PRN ×5 (02:33→20:56)
[2019-11-29] MEDS: LORAZEPAM 2 MG/1 ML VIAL IV PRN ×4 (04:06→22:50)
[2019-11-29 06:22] LABS: CREATININE 1.7 mg/dL (0.6-1.3); POTASSIUM 4.7 mmol/L (3.5-5.1)
--- NOTE | 2019-11-29 06:49 | NUR ---
PT SLEPT INTERMITTENTLY. PT WHENEVER HE WAKES UP WILL ASK FOR HIS ATIVAN OR DIALUDID. PRESCRIBED MEDICATION GIVEN AND PT TOLERATED IT WELL. PT GIVEN ATIVAN AT 1937H, 2348H, AND 0406H ATIVAN . PT TOLERATED IT WELL. DILAUIDID GIVEN AT 2200H, 0233HAND 0647H. SAFETY AND COMFORT PROVIDED. ALL NEEDS ARE MET. WILL ENDORSE TO INCOMING NURSE.
[2019-11-29 06:58] LABS: NEUTROPHILS % (MANUAL) 0 % (42-75)
--- NOTE | 2019-11-29 07:30 | NUR ---
Patient picked up by OR nurses for scheduled surgery. Patient is awake, alert, oriented x 4, not in any form of distress on room air. No complain of any pain at this time.
[2019-11-29] MEDS ORDERED: HYDROMORPHONE 2 MG/1 ML DISP.SYRIN ONE (07:32)
[2019-11-29] MEDS ORDERED: MIDAZOLAM HCL 2 MG/2 ML VIAL ONE (07:32)
[2019-11-29] MEDS ORDERED: BUPIVACAINE PF 0.5% 30 ML VIAL ONE (08:10)
[2019-11-29] MEDS ORDERED: IV LACTATED RINGERS SOLUTION 1,000 ML BAG IV ONE (09:13)
[2019-11-29] MEDS ORDERED: IV NORMAL SALINE 1000 ML BAG IV ONE (09:13)
[2019-11-29] MEDS ORDERED: LIDOCAINE-MPF 2% 5 ML VIAL IJ ONE (09:13)
[2019-11-29] MEDS ORDERED: PROPOFOL 200 MG/20 ML BOTTLE IV ONE (09:13)
[2019-11-29] MEDS ORDERED: SEVOFLURANE 250 ML BOTTLE IH ONE (09:13)
[2019-11-29] MEDS ORDERED: ONDANSETRON 4 MG/2 ML VIAL IV ONE (09:13)
[2019-11-29] MEDS ORDERED: EPHEDRINE SULFATE 50 MG/ML AMPUL IM ONE (09:13)
--- NOTE | 2019-11-29 10:35 | NUR ---
Patient back from surgery awake, alert, no distress, on room air. Denies any pain or discomfort at this time. With intact clean and dry surgical dressing on the left foot up to lower leg. Toes are pink and patient able to move them.
[2019-11-29] MEDS: PANTOPRAZOLE SODIUM 40 MG TABLET.DR PO SCH ×2 (11:30→16:34)
[2019-11-29] MEDS: LEVOTHYROXINE SODIUM 200 MCG TABLET PO SCH (11:32)
[2019-11-29] MEDS: METOPROLOL SUCCINATE XL 50 MG TAB.SR.24H PO SCH (11:33)
[2019-11-29] MEDS: SOD FERRIC GLUC COMPLX/SUCROSE 125 MG in IV NORMAL SALINE 100 ML IV SCH (14:02)
[2019-11-29] MEDS: IV NS 1000 ML 1,000 ML IV PRN (14:03)
[2019-11-29 14:33] LABS: *BILIRUBIN,URIN NEGATIVE (NEGATIVE); *BLOOD, URINE NEGATIVE (NEGATIVE); *CLARITY,URINE CLEAR (CLEAR); *COLOR,URINE YELLOW (YELLOW); *KETONES,URINE NEGATIVE (NEGATIVE); *UROBILINOGEN,URINE 0.2 E.U./dl (NORMAL); LEUKOCYTE ESTERASE ,URINE NEGATIVE (NEGATIVE); NITRITE, URINE NEGATIVE (NEGATIVE); PH,URINE 5.5 (5.0-8.0); UGLUCOSE NEGATIVE (NEGATIVE)
[2019-11-29 18:46] LABS: BACTERIA,URINE NONE SEEN /HPF (NONE SEEN); RBC,URINE 0-3 /HPF (0-3); SQUAMOUS EPITHELIAL CELL,UR FEW /HPF (NONE SEEN); WBC,URINE 0-3 /HPF (0-3)
[2019-11-29 19:09] LABS: *CREATININE,URINE 85.5 mg/dL (30-125); *URINE TOTAL PROTEIN RANDOM 73.4 mg/dL (<150/24HR)
[2019-11-29] MEDS: DOXYCYCLINE HYCLATE 100 MG TABLET PO SCH (20:07)
[2019-11-29] MEDS: CLONIDINE HCL 0.1 MG TABLET PO PRN (20:07)
[2019-11-30] VITALS (10 sets, daily range): BP systolic 133–160; BP diastolic 52–74
--- NOTE | 2019-11-30 00:19 | NUR ---
Received pt resting in bed. AAO x3-4. No acute distress noted. C/o pain and anxiety, pt has dilaudid and ativan PRN. Due meds given as ordered. BP 175/43, prn catapres given and BP went down to 160/46 after an hour. IV on left wrist #22 running NS 75 cc/ hr. Safety measures maintained. Call light and personal items within reach. Will continue to monitor.
[2019-11-30] MEDS: HYDROMORPHONE 1 MG/1 ML DISP.SYRIN IV PRN ×6 (00:57→22:46)
[2019-11-30] MEDS: LORAZEPAM 2 MG/1 ML VIAL IV PRN ×5 (03:03→23:46)
[2019-11-30] MEDS: IV NS 1000 ML 1,000 ML IV PRN (04:48)
[2019-11-30] MEDS: LEVOTHYROXINE SODIUM 200 MCG TABLET PO SCH (06:39)
[2019-11-30 07:24] LABS: BILIRUBIN,TOTAL 0.5 mg/dL (0.2-1.0); CREATININE 1.7 mg/dL (0.6-1.3); MAGNESIUM 1.5 mg/dL (1.8-2.4); PHOSPHOROUS 3.2 mg/dL (2.5-4.9); POTASSIUM 4.7 mmol/L (3.5-5.1); TOTAL PROTEIN, SERUM 5.7 g/dL (6.4-8.2)
[2019-11-30 07:27] LABS: BASOPHILS # (AUTO) 0.1 K/uL (0.0-8.0); BASOPHILS % (AUTO) 1.5 % (0.0-2.0); EOSINOPHILS # (AUTO) 0.1 K/uL (0.0-0.7); EOSINOPHILS % (AUTO) 1.1 % (0.0-7.0); HEMATOCRIT 23.9 % (36.7-47.1); LYMPHOCYTES # (AUTO) 0.9 K/uL (20.0-40.0); LYMPHOCYTES % (AUTO) 10.1 % (20.5-51.5); MEAN CORPUSCULAR HEMOGLOBIN 20.7 uug (23.8-33.4); MEAN CORPUSCULAR HGB CONC 30 g/dL (32.5-36.3); MEAN CORPUSCULAR VOLUME 68.8 fL (73.0-96.2); MONOCYTES % (AUTO) 32.9 % (0.0-11.0); NEUTROPHILS # (AUTO) 4.9 K/uL (1.8-8.9); NEUTROPHILS % (AUTO) 54.4 % (38.5-71.5); PLATELET COUNT (AUTO) 119 K/uL (152-348); RED BLOOD CELL COUNT(AUTO) 3.47 MIL/uL (4.06-5.63)
[2019-11-30 07:35] LABS: HEMOGLOBIN 7.2 g/dL (12.5-16.3)
[2019-11-30] MEDS: DOXYCYCLINE HYCLATE 100 MG TABLET PO SCH ×2 (08:02→20:45)
[2019-11-30] MEDS: PANTOPRAZOLE SODIUM 40 MG TABLET.DR PO SCH ×2 (08:02→18:28)
[2019-11-30] MEDS: METOPROLOL SUCCINATE XL 50 MG TAB.SR.24H PO SCH (08:03)
[2019-11-30] MEDS: AMLODIPINE 5 MG TABLET PO SCH (08:04)
[2019-11-30] MEDS ORDERED: MAGNESIUM SULFATE/D5W 100 ML IV SCH (10:45)
--- NOTE | 2019-11-30 11:48 | NUR ---
pt. does not want blood transfusion until after next scheduled dilaudid. pt. does not want another IV inserted and wants to wait until PRN dilaudid then is okay with getting blood transfusion.
--- NOTE | 2019-11-30 13:43 | NUR ---
verbal order for dilaudid 1 mg Q4H PRN and to stop dilaudid 0.5 mg Q4H. Addendum: 11/30/19 at 1344 by SURJIT WOOD RN Order by SUNITA Trejo for pain
[2019-11-30 15:22] LABS: BAND % (MANUAL) 2 % (0-10); LYMPHOCYTES % (MANUAL) 10 % (20-40); NEUTROPHILS % (MANUAL) 56 % (42-75)
[2019-11-30 15:23] LABS: EOSINOPHILS % (MANUAL) 2 % (0-8); MONOCYTES % (MANUAL) 30 % (2-10)
[2019-11-30] MEDS: CLONIDINE HCL 0.1 MG TABLET PO PRN (15:27)
[2019-11-30] MEDS: SOD FERRIC GLUC COMPLX/SUCROSE 125 MG in IV NORMAL SALINE 100 ML IV SCH (18:27)
--- NOTE | 2019-11-30 18:53 | NUR ---
Pt. tolerated blood transfusion well. Vital signs stable. Pt. denied SOB/ difficulty breathing/ itchiness/ fever/ back pain throughout transfusion. Blood drawn 15 minutes post blood transfusion. pt. stable throughout shift catapress given once for SBP >150. PRN dilaudid and ativan given.
[2019-11-30 19:03] LABS: HEMATOCRIT 24.8 % (36.7-47.1); HEMOGLOBIN 7.6 g/dL (12.5-16.3)
--- NOTE | 2019-11-30 19:30 | NUR ---
RECEIVED PT IN NO ACUTE DISTRESS. IV INTACT. PT IN SITTING POSITION. ADVISED THE PT TO ELEVATE HIS LEGS. SAFETY AND COMFORT PROVIDED. WILL CONTINUE TO MONITOR.
[2019-12-01] MEDS: HYDROMORPHONE 1 MG/1 ML DISP.SYRIN IV PRN ×5 (02:53→19:52)
[2019-12-01 04:03] VITALS: BP 161/72
[2019-12-01] MEDS: CLONIDINE HCL 0.1 MG TABLET PO PRN (04:54)
[2019-12-01] MEDS: LORAZEPAM 2 MG/1 ML VIAL IV PRN ×5 (04:54→23:08)
[2019-12-01] MEDS: LEVOTHYROXINE SODIUM 200 MCG TABLET PO SCH (06:20)
--- NOTE | 2019-12-01 06:25 | NUR ---
PT SLEPT INTERMITTENTLY. PT IN NO ACUTE DISTRESS. IV INTACT. PRESCRIBED MEDICATION GIVEN AND PT TOLERATED IT WELL. PT GIVEN ATIVAN PRN AT 2346H AND 0454H . DILAUDID PRN GIVEN AT 2246H, 0253 H. PT TOLERATED IT WELL. SAFETY AND COMFORT PROVIDED. WILL ENDORSE TO INCOMING NURSE FOR CONTINUITY OF CARE.
[2019-12-01 06:30] VITALS: BP 148/71
--- NOTE | 2019-12-01 07:08 | NUR ---
PT GIVEN DILAUDID AT 0654H. PT TOLERATED IT WELL. PT STABLE. ENDORSED TO INCOMING NURSE.
[2019-12-01 07:20] LABS: CREATININE 1.7 mg/dL (0.6-1.3); MAGNESIUM 1.4 mg/dL (1.8-2.4); POTASSIUM 5.1 mmol/L (3.5-5.1)
[2019-12-01] MEDS: DOXYCYCLINE HYCLATE 100 MG TABLET PO SCH ×2 (08:59→20:11)
[2019-12-01] MEDS: AMLODIPINE 5 MG TABLET PO SCH ×2 (08:59→16:17)
[2019-12-01] MEDS: METOPROLOL SUCCINATE XL 50 MG TAB.SR.24H PO SCH (09:00)
[2019-12-01] MEDS: PANTOPRAZOLE SODIUM 40 MG TABLET.DR PO SCH (09:00)
[2019-12-01] MEDS ORDERED: MAGNESIUM SULFATE/D5W 100 ML IV SCH (10:15)
[2019-12-01 12:00] VITALS: BP 151/68
[2019-12-01] MEDS: SOD FERRIC GLUC COMPLX/SUCROSE 125 MG in IV NORMAL SALINE 100 ML IV SCH (13:26)
[2019-12-01 16:00] VITALS: BP 152/68
[2019-12-01 16:49] LABS: BASOPHILS # (AUTO) 0.1 K/uL (0.0-8.0); BASOPHILS % (AUTO) 1.2 % (0.0-2.0); EOSINOPHILS # (AUTO) 0.2 K/uL (0.0-0.7); EOSINOPHILS % (AUTO) 1.4 % (0.0-7.0); HEMATOCRIT 26.3 % (36.7-47.1); HEMOGLOBIN 7.8 g/dL (12.5-16.3); LYMPHOCYTES # (AUTO) 0.8 K/uL (20.0-40.0); LYMPHOCYTES % (AUTO) 7.2 % (20.5-51.5); MEAN CORPUSCULAR HEMOGLOBIN 20.8 uug (23.8-33.4); MEAN CORPUSCULAR HGB CONC 30 g/dL (32.5-36.3); MEAN CORPUSCULAR VOLUME 69.9 fL (73.0-96.2); MONOCYTES # (AUTO) 2.8 K/uL (2.0-10.0); MONOCYTES % (AUTO) 26.8 % (0.0-11.0); NEUTROPHILS # (AUTO) 6.6 K/uL (1.8-8.9); NEUTROPHILS % (AUTO) 63.4 % (38.5-71.5); PLATELET COUNT (AUTO) 135 K/uL (152-348); RED BLOOD CELL COUNT(AUTO) 3.76 MIL/uL (4.06-5.63); WHITE BLOOD COUNT (AUTO) 10.5 K/uL (3.6-10.2)
--- NOTE | 2019-12-01 17:15 | NUR ---
report received from nurse Mejia.
--- NOTE | 2019-12-01 17:16 | NUR ---
patient sitting at the edge of the bed, alert, oriented x4, verbally responsive, no sob, resp even nonlabored, skin warm and dry to touch, no distress noted.
--- NOTE | 2019-12-01 17:23 | NUR ---
Patient care endorse to rn. Gerard who will continue with care plan.
[2019-12-01 18:06] LABS: *OCCULT BLOOD STOOL NEGATIVE (NEGATIVE)
--- NOTE | 2019-12-01 19:30 | NUR ---
RECEIVED PT AWAKE, ALERT AND ORIENTEDX4. PT IN NO ACUTE DISTRESS. IV INTACT. SAFETY AND COMFORT PROVIDED. WILL CONTINUE TO MONITOR.
[2019-12-01 20:00] VITALS: BP 149/64
[2019-12-01] MEDS: PANTOPRAZOLE SODIUM 40 MG VIAL IV SCH (20:11)
[2019-12-01 22:12] LABS: EOSINOPHILS % (MANUAL) 1 % (0-8); LYMPHOCYTES % (MANUAL) 4 % (20-40); MONOCYTES % (MANUAL) 24 % (2-10); NEUTROPHILS % (MANUAL) 71 % (42-75)
[2019-12-02] MEDS: HYDROMORPHONE 1 MG/1 ML DISP.SYRIN IV PRN ×6 (00:58→21:28)
--- NOTE | 2019-12-02 02:10 | NUR ---
PT WILL JUST WAKE UP TO ASK FOR EITHER HIS DILAUDID OR ATIVAN OR WAIT FOR THE NEXT DOSE . ADVISED PT TO ELEVATE HIS FEET. PAIN MEDICATION IS PRN AND NOT ROUTINE. WILL CONTINUE TO MONITOR.
[2019-12-02 04:00] VITALS: BP 130/66
[2019-12-02] MEDS: LORAZEPAM 2 MG/1 ML VIAL IV PRN ×5 (04:03→23:45)
[2019-12-02] MEDS: LEVOTHYROXINE SODIUM 200 MCG TABLET PO SCH (06:18)
[2019-12-02 06:19] LABS: CREATININE 1.7 mg/dL (0.6-1.3); POTASSIUM 5.3 mmol/L (3.5-5.1)
--- NOTE | 2019-12-02 06:22 | NUR ---
PT SLEPT INTERMITTENTLY. PT IN NO ACUTE RESPIRATORY DISTRESS. IV INTACT. PT WILL REALLY ASKED FOR HIS ATIVAN AND DILAUDID PRN MEDICATIONS. ATIVAN GIVEN AT 2308H AND 0403. DILAUDID GIVEN AT 1952H, 0058HAND 0506H FOR 9/10 PAIN SCALE. PT TOLERATED IT WELL. LEFT FOOT DRESSING DRY AND INTACT. NO SIGN AND SYMPTOM OF BLEEDING NOTED . PT CAN FEEL HIS LEFT FEET BEING TOUCHED AND WARM. PRESCRIBED MEDICATION GIVEN AND PT TOLERATED IT WELL. SAFETY AND COMFORT PROVIDED. WILL ENDORSE TO INCOMING NURSE FOR CONTINUITY OF CARE.
[2019-12-02] MEDS ORDERED: SODIUM POLYSTYRENE SULFONATE 15 G/60 ML LIQUID UDC PO ONE (07:30)
--- NOTE | 2019-12-02 08:00 | NUR ---
Received patient in bed, awake, alert and verbally responsive. No signs of distress noted. No SOB. No complain of Pain or discomfort at this time. kept clean and comfortable. Kept the call light within easy reach. Will continue to monitor.
[2019-12-02] MEDS: PANTOPRAZOLE SODIUM 40 MG VIAL IV SCH ×2 (08:09→20:02)
[2019-12-02] MEDS: AMLODIPINE 5 MG TABLET PO SCH ×2 (08:09→17:20)
[2019-12-02] MEDS: DOXYCYCLINE HYCLATE 100 MG TABLET PO SCH ×2 (08:09→20:01)
[2019-12-02] MEDS: METOPROLOL SUCCINATE XL 50 MG TAB.SR.24H PO SCH (08:10)
[2019-12-02] MEDS: OXYCODONE HCL 5 MG TABLET PO PRN ×2 (11:35→16:37)
[2019-12-02 12:18] VITALS: BP 150/68
[2019-12-02] MEDS ORDERED: SOD FERRIC GLUC COMPLX/SUCROSE 125 MG in IV NORMAL SALINE 100 ML IV ONE (14:00)
[2019-12-02 16:12] VITALS: BP 155/72
--- NOTE | 2019-12-02 17:56 | NUR ---
Patient in bed , awake, alert and verbally responsive. No signs of distress noted. No SOB. Afebrile. Pain medications given as ordered for generalized body pain and left Foot pain. Wound care provided on Left Foot. kept clean and comfortable. All needs attended and met. Will endorse to Oncoming Nurse.
[2019-12-02] MEDS: CLONIDINE HCL 0.1 MG TABLET PO PRN (20:13)
[2019-12-02 20:19] VITALS: BP 170/74
--- NOTE | 2019-12-02 21:43 | NUR ---
Received pt resting in bed and eating snacks. AAO x4. No acute distress noted. Complain of pain on left foot and feeling of anxiousness. Pt has PRN dilaudid and ativan, given apart. Due meds given as ordered. Pt's BP elevated 170/74, Catapres PRN given. Rechecked after an hour. BP now 143/57, HR 68. Safety measures maintained. Call light and personal items within reach. Will continue to monitor.
[2019-12-03] MEDS: HYDROMORPHONE 1 MG/1 ML DISP.SYRIN IV PRN ×3 (01:29→09:58)
[2019-12-03] MEDS: LORAZEPAM 2 MG/1 ML VIAL IV PRN ×2 (03:45→08:25)
[2019-12-03] MEDS: OXYCODONE HCL 5 MG TABLET PO PRN ×2 (04:20→11:35)
[2019-12-03 05:23] VITALS: BP 132/66
[2019-12-03] MEDS: LEVOTHYROXINE SODIUM 200 MCG TABLET PO SCH (06:01)
--- NOTE | 2019-12-03 07:30 | NUR ---
Received patient resting in bed. No sign of respiratory distress noted at this time, patient is saturating well on room air. Patient complains of pain, will refer to eMAR to see what medications the patient has available for pain. IV is a right upper arm midline, the patient also has a left arm fistula that is closed. No BP on left arm. safety precautions are in place, bed in the lowest position and locked with call light and belongings are within reach. will continue to monitor and observe.
[2019-12-03] MEDS: PANTOPRAZOLE SODIUM 40 MG VIAL IV SCH (08:24)
[2019-12-03] MEDS: DOXYCYCLINE HYCLATE 100 MG TABLET PO SCH (08:24)
[2019-12-03] MEDS: AMLODIPINE 5 MG TABLET PO SCH (08:30)
[2019-12-03] MEDS: METOPROLOL SUCCINATE XL 50 MG TAB.SR.24H PO SCH (08:30)
[2019-12-03 11:30] VITALS: BP 166/81
[2019-12-03] MEDS ORDERED: CLON0.1T14 PO (11:55)
[2019-12-03] MEDS ORDERED: DOXY100T2 PO (11:55)
[2019-12-03] MEDS ORDERED: LEVO200T PO (11:55)
[2019-12-03] MEDS ORDERED: AMLO5TAB9 PO (11:55)
[2019-12-03] MEDS ORDERED: ACET325T53 PO (11:55)
--- NOTE | 2019-12-03 12:30 | NUR ---
Patient blood pressure is elevated with administer PRN clonidine as ordered for patient prior to discharge.
[2019-12-03] MEDS ORDERED: PANT40TA2 PO (12:36)
--- NOTE | 2019-12-03 13:00 | NUR ---
Patient is discharges and left in vehicle provided by his insurance. Patient in stable condition with not sign of distress noted. Patient give prescriptions, discharge paperwork and all belongings. He left in a left ankle boot. Patient's wristband and midline removed. Brought patient down in wheelchair.
[2019-12-03 13:20] VITALS: BP 166/81
[2019-12-03] MEDS: CLONIDINE HCL 0.1 MG TABLET PO PRN (13:20)
[2019-12-03] MEDS ORDERED: SOD FERRIC GLUC COMPLX/SUCROSE 125 MG in IV NORMAL SALINE 100 ML IV ONE (14:00)
== END 2019-12-03 13:35 | disposition home health service (06) | DRG 313 ==
LOC: ER 04:00 → MEDSURG3 08:50
PROVIDERS: ADMIT Nurse Practitioner Acute Care; ATTEND Nurse Practitioner Acute Care
PROC: 05HB33Z Insertion of Infusion Device into Right Basilic Vein, Percutaneous Approach (ICD-10-PCS; principal; 2019-11-27)
PROC: 0KBW0ZZ Excision of Left Foot Muscle, Open Approach (ICD-10-PCS; 2019-11-29)
PROC: 0SBG4ZZ Excision of Left Ankle Joint, Percutaneous Endoscopic Approach (ICD-10-PCS; 2019-11-29)
PROC: 30233N1 Transfusion of Nonautologous Red Blood Cells into Peripheral Vein, Percutaneous Approach (ICD-10-PCS; 2019-11-30)
DX: M86.8X7 Other osteomyelitis, ankle and foot (principal); N17.0 Acute kidney failure with tubular necrosis; E44.0 Moderate protein-calorie malnutrition; D69.59 Other secondary thrombocytopenia; E03.9 Hypothyroidism, unspecified; F11.20 Opioid dependence, uncomplicated; F17.210 Nicotine dependence, cigarettes, uncomplicated; G40.909 Epilepsy, unspecified, not intractable, without status epilepticus; K21.0 Gastro-esophageal reflux disease with esophagitis; L03.115 Cellulitis of right lower limb; L03.116 Cellulitis of left lower limb; Z59.0 Homelessness; N18.9 Chronic kidney disease, unspecified; F10.239 Alcohol dependence with withdrawal, unspecified; K70.30 Alcoholic cirrhosis of liver without ascites; B35.1 Tinea unguium; K76.6 Portal hypertension; D50.9 Iron deficiency anemia, unspecified; E88.09 Other disorders of plasma-protein metabolism, not elsewhere classified; L97.328 Non-pressure chronic ulcer of left ankle with other specified severity; M17.0 Bilateral primary osteoarthritis of knee; F19.10 Other psychoactive substance abuse, uncomplicated; M25.572 Pain in left ankle and joints of left foot; D64.9 Anemia, unspecified; E66.9 Obesity, unspecified; Z68.27 Body mass index [BMI] 27.0-27.9, adult; M65.872 Other synovitis and tenosynovitis, left ankle and foot; L02.416 Cutaneous abscess of left lower limb; J44.9 Chronic obstructive pulmonary disease, unspecified; M10.072 Idiopathic gout, left ankle and foot; K44.9 Diaphragmatic hernia without obstruction or gangrene; Z91.19 Patient's noncompliance with other medical treatment and regimen; G62.1 Alcoholic polyneuropathy; K22.70 Barrett's esophagus without dysplasia; K29.80 Duodenitis without bleeding; K25.7 Chronic gastric ulcer without hemorrhage or perforation
CPT/HCPCS: 36415; 70030-TC; 71045; 73610; 73630; 73721; 83550; 83735; 84100; 84156; 84300; 84550; 85018; 85025; 85049; 85610; 85651; 86140; 86850; 86900; 86901; 86920; 87070; 87075; 93005; A4649; C9113; G0378; J0696; J1170; J2060; J2250; J2405; J2916; J3370; J3475; J3490; J7030; J7040; J7060; J7120; P9016-BL; P9021; P9047